=== PATIENT | male | born 1995 | race Caucasian/White ===

== ENCOUNTER 2017-12-31 16:44 | Emergency (ER) | payer SELFPAY ==
[~2017-12-31] VITALS: Ht 188 cm; Wt 99.8 kg
[2017-12-31] MEDS ORDERED: IBUPROFEN 800 MG TAB PO ONE (17:15)
[2017-12-31] MEDS ORDERED: HYDROcodone-ACET 10/325MG TAB PO ONE (17:45)
[2017-12-31] MEDS ORDERED: cefTRIAXone SOD 1,000 MG VL IM ONE (17:45)
[2017-12-31] MEDS ORDERED: LIDOCAINE 1% HCL (LOCAL ANESTH.) INJ 20ML MDV ONE ×2 (18:04→19:28)
[2017-12-31] MEDS ORDERED: CLINDAMYCIN HCL 150 MG CAP PO ONE (19:15)
[2017-12-31] MEDS ORDERED: BACITRACIN TOP OINT 1 UD PKG TOP ONE (19:15)
[2017-12-31] MEDS ORDERED: LIDOCAINE 1% (LOCAL ANESTH.) PF 5ml SDV ID ONE (19:15)
[2017-12-31] MEDS ORDERED: TETANUS-DIPTH-ACEL PERTUSSIS 0.5ML SYRG IM ONE (19:30)
[2017-12-31] MEDS ORDERED: ONDANSETRON HCL 4 MG/2 ML VIAL ONE (20:23)
[2017-12-31] MEDS ORDERED: HYDROmorphone HCL 2 MG/ML VL ONE (20:24)
[2017-12-31] MEDS ORDERED: HYDROmorphone HCL 2 MG/ML VL IV ONE ×2 (20:30)
[2017-12-31] MEDS ORDERED: ONDANSETRON HCL 4 MG/2 ML VIAL IV ONE ×2 (20:30)
[2017-12-31 21:15] VITALS: BP 102/56
== END 2017-12-31 22:25 | disposition home or self-care (01) ==
LOC: ER 16:44
DX: S62.604A Fracture of unspecified phalanx of right ring finger, initial encounter for closed fracture (principal); S61.314A Laceration without foreign body of right ring finger with damage to nail, initial encounter; W23.0XXA Caught, crushed, jammed, or pinched between moving objects, initial encounter; Y93.89 Activity, other specified; Y92.89 Other specified places as the place of occurrence of the external cause; Y99.8 Other external cause status
CPT/HCPCS: 11730; 12001; 29130; 73130; 73140; 90471; 90715; 96372; 96374; 96375; 99284; J0696; J1170; J2001; J2405

== ENCOUNTER 2018-01-05 09:28 | Emergency (ER) | payer SELFPAY ==
[~2018-01-05] VITALS: Ht 188 cm; Wt 99.8 kg
[2018-01-05 09:35] VITALS: BP 130/77
== END 2018-01-05 10:52 | disposition home or self-care (01) ==
LOC: ER 09:28
DX: S61.411D Laceration without foreign body of right hand, subsequent encounter (principal); R42 Dizziness and giddiness; X58.XXXD Exposure to other specified factors, subsequent encounter

== ENCOUNTER 2018-08-17 16:00 | Emergency (ER) | payer SELFPAY ==
[~2018-08-17] VITALS: Ht 188 cm; Wt 90.7 kg
[2018-08-17 16:36] LABS: Urine Bacteria NONE SEEN /hpf (None Seen); Urine Blood Negative /uL (Negative); Urine Specific Gravity 1.002 (1.001-1.035); Urine WBC <1 /hpf (0 - 3)
[2018-08-17 16:39] LABS: Basophils # (auto) 0 uL; Basophils % (auto) 0.2 % (0.0-2.0); Eosinophils # (auto) 0 uL; Eosinophils % (auto) 0.1 % (0.0-7.0); Hematocrit 49.8 % (41.0-53.0); Hemoglobin 16.4 g/dL (13.5-17.5); Lymphocytes # (auto) 1.7 uL; Lymphocytes % (auto) 15.9 % (10.0-50.0); Mean Corpuscular Hemoglobin 28.9 pg (28.0-32.0); Mean Corpuscular Volume 87.5 fL (80.0-100.0); Monocytes # (auto) 0.4 uL; Monocytes % (auto) 3.6 % (0.0-12.0); Neutrophils # (auto) 8.7 uL; Neutrophils % (auto) 80.2 % (37.0-80.0); Platelet Count (auto) 299 10^3/uL (140-450); Red Blood Cells 5.69 10^6/uL (4.5-5.90); Red Cell Distribution Width 14.4 % (11.8-14.3); White Blood Cell 10.8 10^3/uL (4.4-10.8)
[2018-08-17 16:43] LABS: Amphetamine Screen, Urine NEGATIVE (NEGATIVE); Barbiturate Scree,Urine NEGATIVE (NEGATIVE); Benzodiazephine Screen, Urine NEGATIVE (NEGATIVE); Cannabinoid Screen, Urine POSITIVE (NEGATIVE); Cocaine Screen, Urine NEGATIVE (NEGATIVE); Opiate Scree,Urine NEGATIVE (NEGATIVE); Phencyclidine Screen, Urine NEGATIVE (NEGATIVE)
[2018-08-17 16:51] LABS: Albumin 4.2 g/dL (3.4-5.0); Anion Gap 8 (5-15); Blood Urea Nitrogen 5 mg/dL (7-18); Calcium 8.6 mg/dL (8.5-10.1); Carbon Dioxide 24 mmol/L (21-32); Chloride 113 mmol/L (98-107); Glucose 115 mg/dL (74-106); Potassium 3.6 mmol/L (3.5-5.1); Sodium 145 mmol/L (136-145)
[2018-08-17 16:55] LABS: Alanine Aminotransferase 22 U/L (16-61); Alkaline Phosphatase 76 U/L (45-117); Aspartate Aminotransferase 19 U/L (15-37); Bilirubin, Total 0.3 mg/dL (0.2-1.0); GFR African American > 60 mL/min; GFR Non-African American > 60 mL/min; Total Protein 7.8 g/dL (6.4-8.2)
[2018-08-17] MEDS ORDERED: SODIUM CHLORIDE 0.9% 1,000 ML IV ONE (17:45)
[2018-08-17] MEDS ORDERED: MULTIPLE VITAMIN 10 ML, MAGNESIUM SULF SDV 50% 8 MEQ in SODIUM CHLORIDE 0.9% 1,000 ML IV SCH (18:00)
[2018-08-17] MEDS ORDERED: diphenhdrAMINE HCL 50 MG/1 ML VL IV ONE (19:15)
[2018-08-17] MEDS ORDERED: LORazepam 2MG/ML-1ML VIAL ONE (19:15)
[2018-08-17] MEDS ORDERED: diphenhdrAMINE HCL 50 MG/1 ML VL ONE (19:15)
[2018-08-17] MEDS ORDERED: LORazepam 2MG/ML-1ML VIAL IV ONE (19:15)
[2018-08-17] MEDS ORDERED: HALOPERIDOL LACTATE 5 MG/ML INJ VIAL IM ONE (19:15)
[2018-08-17] MEDS ORDERED: HALOPERIDOL LACTATE 5 MG/ML INJ VIAL ONE (19:16)
[2018-08-18 03:34] VITALS: BP 108/71
[2018-08-18] MEDS ORDERED: MULTIPLE VITAMIN 10 ML, MAGNESIUM SULF SDV 50% 8 MEQ in SODIUM CHLORIDE 0.9% 1,000 ML IV SCH (12:00)
== END 2018-08-18 06:06 | disposition home or self-care (01) ==
LOC: EDBD 16:00 → ER 16:05
DX: R45.851 Suicidal ideations (principal); F32.9 Major depressive disorder, single episode, unspecified; F41.9 Anxiety disorder, unspecified; F10.920 Alcohol use, unspecified with intoxication, uncomplicated; Y90.0 Blood alcohol level of less than 20 mg/100 ml
CPT/HCPCS: 36415; 80053; 80307; 80320; 81001; 85025; 93005; 96365; 96366; 96372; 96375; 99284; J1200; J1630; J2060; J7030